=== PATIENT | female | born 1950 | race African-American/Black ===

== ENCOUNTER 2016-06-29 12:38 | Inpatient (IN) | payer MEDICARE, OTHER ==
--- NOTE | ~2016-06-29 | CN ---
Consultation Report [facility] [address] [place]. [address] NAME: YOSELIN BELTRAN : 46 STATUS : ADM Irma PAT#: [id number] AGE: 65 ADM/REG DATE : 06/29/16 MR#: [id number] REPORT SERV DATE: 06/30/16 DICTATED BY: RAGHAV ANSARI DATE: 06/30/16 REPORT STATUS : Draft TRANSCRIBED BY: MODRoselia DATE: 06/30/16 DATE OF CONSULTATION: 06/30/2016 REASON FOR CONSULTATION: Seizure and TIA. HOSPITALIST: Jude Faith M.D. COMPLIANCE FIELD TECHNICIAN: Juanito Echeverria M.D. HISTORY OF PRESENT ILLNESS: The patient is a 65-year-old female who developed a left-sided facial droop and slurred speech yesterday. Her family noticed that she was talking a little strangely and had a new facial droop, so she was brought into the emergency department for further evaluation and treatment. She denied any visual changes. She denied any weakness, however, she did complain of numbness on the left side of her face and also her left arm. During this time, the patient was also complaining of some left-sided chest pain. She stated that the pain was worse when she would take a deep breath or cough. She also complained of pain when she would move. Lastly, while the patient was in the emergency room, she recalled having spasm/seizure type movement when she was being stuck for an IV. She also mentioned she had seizure-type activity years ago when she was being stuck for an IV. She is very fearful of needles, and these were the only two times that she had seizure- like activity. When questioned more extensively, the patient remembers the whole episode and she was awake during this time. She had no aura, she had no tongue biting or incontinence, and she was fully awake during and after the episodes. PAST MEDICAL HISTORY: [place], congestive heart failure, atrial fibrillation, renal and liver "mass," anemia, obstructive sleep apnea, osteoarthritis, and obesity. PAST SURGICAL HISTORY: Recent balloon sinuplasty; shoulder, elbow, and back surgeries; total abdominal hysterectomy and cholecystectomy. ALLERGIES: OXYCODONE, FLEXERIL, AND HYDROCODONE. MEDICATIONS: Home medication list includes Eliquis 5 mg b.i.d., aspirin 81 mg daily, calcium daily, Neurontin 100 mg at bedtime, Singulair 10 mg daily, nitroglycerin p.r.n., Protonix 40 mg daily, Klor-Con 10 mEq daily, Pravachol 40 mg at bedtime, Rythmol 225 mg b.i.d., Demadex 20 mg daily, and Desyrel 50 mg at bedtime. SOCIAL HISTORY: The patient is . She lives alone. She has two children. She is on disability. She does not smoke. She rarely drinks alcohol and does not use illicits. FAMILY HISTORY: The patient's mother at age of 74, she had heart failure and lung cancer. Her father at the age of 88, he had severe peripheral vascular disease. She has eight sisters and two brothers. One sister recently had a stroke. REVIEW OF SYSTEMS: Consultation Report [address] [place]. [address] NAME: YOSELIN BELTRAN : 46 STATUS : ADM Irma PAT#: [id number] AGE: 65 ADM/REG DATE : 06/29/16 MR#: [id number] REPORT SERV DATE: 06/30/16 DICTATED BY: RAGHAV ANSARI DATE: 06/30/16 REPORT STATUS : Draft TRANSCRIBED BY: SUNITA DATE: 06/30/16 For pertinent positives, see HPI. PHYSICAL EXAMINATION: GENERAL: The patient is a 65-year-old female who stands 5 feet 6 inches tall and weighs 191 pounds. VITAL SIGNS: She is afebrile, heart rate 78, respiratory rate 16, O2 saturations on room air 96%, blood pressure 99/58. NEUROLOGIC: The patient is alert. She is oriented x4, pleasant, does communicate appropriately. She is slightly dysarthric. There is no aphasia. Pupils are 3 mm. PERRLA. She does have a left-sided facial droop and slight tongue deviation to the left. Reports left-sided facial numbness. [id number], no ataxia. She does have a pronator drift on the left comparing the left to the right. She does report numbness on the left when compared to the right. Strength is 4/5 on the left compared to the right, which is 5/5. Upper DTRs are 1+ bilaterally. Lower extremity strength is 3/5 on the left and 4/5 on the right. Lower DTRs are 2+ bilaterally. Downgoing toes. NECK: No carotid bruits, JVD, or thyromegaly. CHEST: Lung sounds are relatively clear. CARDIAC: Regular rate and rhythm. She does have chest wall tenderness upon palpation and when taking a deep breath. LABORATORY DATA: CBC is normal. BMP is normal. UA is negative for UTI. INR 1.4. Procalcitonin is normal. TSH 1.32. A1c is 5.1. Cholesterol values are elevated. CT of the brain, no acute changes. NIH Stroke Scale is 5. ASSESSMENT/PLAN: 1. Probable stroke with resultant left hemiparesis. The patient will undergo an MRI of the brain without gadolinium and an MRA of the head and neck. She will be sedated with Ativan 1 mg prior to her procedure. She will have an echocardiogram with bubble study, PT/OT, and Speech Therapy consultation, Case Management consultation for rehab placement. Additional lab work will be drawn. Her aspirin will be increased to 325 mg daily. Her Pravachol will be changed to Lipitor 80 mg daily. Education regarding risk factor reduction was done. 2. Questionable seizure versus psychogenic nonepileptic seizure. She will undergo EEG analysis. Thank you again for including us in consultation. We will follow with you. MANISHA/SUNITA NORBERTO Pacheco- / [id number] Consultation Report [address] [address] NAME: YOSELIN BELTRAN : 46 STATUS : ADM Irma PAT#: [id number] AGE: 65 ADM/REG DATE : 06/29/16 MR#: [id number] REPORT SERV DATE: 06/30/16 DICTATED BY: RAGHAV ANSARI DATE: 06/30/16 REPORT STATUS : Draft TRANSCRIBED BY: SUNITA DATE: 06/30/16 CC: Flavia Woodward M.D. Robert McKoy, M.D.
--- NOTE | ~2016-06-29 | DS ---
Discharge Summary [facility] [id number] [place]. [address] NAME: YOSELIN BELTRAN : 46 STATUS : DIS IN PAT#: [id number] AGE: 65 ADM/REG DATE : 06/30/16 MR#: [id number] REPORT SERV DATE: 07/02/16 DICTATED BY: INOCENCIA RODRIGUEZ DATE: 07/01/16 REPORT STATUS : Draft TRANSCRIBED BY: MODL DATE: 07/01/16 ADMISSION DATE: 06/30/2016 DISCHARGE DATE: 07/01/2016 PRINCIPAL DIAGNOSIS: Please see Dr. Galicia's on 06/29/2016. HOSPITAL COURSE: Admitted with CVA versus TIA with chest pain and a lot of other vague symptoms including diaphoresis, palpitations which would occur during normal telemetry, dyspnea which would occur during normal saturometry, and generalized anxiety as well. The patient had a CT which showed a significant microvascular disease, a stress test which was negative. An MRI had been ordered by Neurology, who was concerned about residual right facial droop; however, the patient earlier refused the MRI or MRA. The patient may or may not have had a baseline slightly crooked smile it was unclear, but the Neurology signed off with the patient's refusal of further workup. There was a questionable seizure that had occurred with the blood draw, and EEG was also negative; however, I felt that primarily the issue was of ongoing significant anxiety state. She will continue her BuSpar, but had Ativan p.r.n. for occasional panic attacks. She will continue in addition Tenormin 25 mg q.h.s. versus subjective palpitations, BuSpar 15 mg b.i.d., Ativan p.r.n., Singulair 10 mg daily, daily aspirin, Protonix, Desyrel, Rythmol, Neurontin, Eliquis, Lipitor. Follow up with Dr. Shauna Nino in one to two weeks, and Dr. Echeverria as previously scheduled. VESTA/SUNITA Inocencia Rodriguez M.D. / [id number] CC: Inocencia Rodriguez M.D. Shauna Nino M.D. Juanito Echeverria M.D.
--- NOTE | ~2016-06-29 | HP ---
History And Physical [facility] [address] [facility] [place]. [address] NAME: YOSELIN BELTRAN : 46 STATUS : ADM Irma PAT#: [id number] AGE: 65 ADM/REG DATE : 06/29/16 MR#: [id number] REPORT SERV DATE: 06/30/16 DICTATED BY: ASHANTI STODDARD DATE: 06/29/16 REPORT STATUS : Draft TRANSCRIBED BY: MODL DATE: 06/29/16 DATE OF ADMISSION: 06/29/2016 CHIEF COMPLAINT: Heart racing with sweating, diaphoresis, and just generalized weakness x1 week. HISTORY OF PRESENT ILLNESS: The patient is a 65-year-old female with past medical history of [place], stent in the 70s, sleep apnea, compliant with her CPAP, hypertension, arthritis, reported CHF with unknown ejection fraction followed by Dr. Echeverria who presents after having progressive shortness of breath, the palpitations, today also was noted to have diaphoretic type episode where she was breaking out in sweats with minimal activity and chest, abdominal wall discomfort that has been constant, moderate severity, noted to be sharp at times, relieving slightly by rest, nonradiating, reproducible pain in abdominal area at site of her hernia. The patient has not had any nausea, vomiting, or headache but did have shortness of breath, diaphoresis, dizziness, palpitations as she reports that she can almost see her heart thumping out of her chest at times. She has also been evaluated by Dr. Harman in past for dysrhythmia for which she has apparently worn Holter but not required any intervention at that time. Symptoms are worsened with activity and sitting up, relieved by lying down and rest. The patient also reports that this morning had facial numbness around 0930 hours, mild, irregular neurologic finding of the patient having twitching episode. It is unclear if this was seizure-type that was witnessed by Dr. Lopez, however, patient was still able to talk during this episode as she was able to respond to questioning of Eliquis as her blood thinning medication. These symptoms also have resolved but the patient does have mild dyssymmetry on her lip. ADDITIONAL REVIEW OF SYSTEMS: A 10-point review of systems negative except for that noted in the HPI. PAST MEDICAL HISTORY: Heart attack, CHF, kidney and liver tumors, anemia, [place], stent history in years passed, sleep apnea on CPAP, and arthritis. SURGERY: Shoulder, elbow and back surgeries, hysterectomy, gallbladder. She has a planned hemorrhoid surgery. FAMILY HISTORY: Heart, diabetes, cancer, and peripheral artery disease. SOCIAL HISTORY: Negative smoking, does have rare alcohol. No illicits. She has been nurse assistance for 35 years. ALLERGIES: OXYCODONE, FLEXERIL, AND HYDROCODONE. HOME MEDICATIONS: Eliquis, aspirin, calcitriol, Neurontin, Singulair, Nitrostat, Protonix, Klor-Con, pravastatin, Rythmol, Demadex, and trazodone. PHYSICAL EXAMINATION: VITAL SIGNS: The patient's blood pressure 133/82, temperature 97.0, pulse 93, respirations History And Physical [address] [address] NAME: YOSELIN BELTRAN : 46 STATUS : ADM Irma PAT#: [id number] AGE: 65 ADM/REG DATE : 06/29/16 MR#: [id number] REPORT SERV DATE: 06/30/16 DICTATED BY: ASHANTI STODDARD DATE: 06/29/16 REPORT STATUS : Draft TRANSCRIBED BY: SUNITA DATE: 06/29/16 18, O2 sats 100% on room air. GENERAL: Elderly than stated age. Well developed, well nourished. EYES: No scleral icterus. EOMI. Symmetrical, no nystagmus. ENT: Does have mild right-sided droop type episode except with smile this resolves. Moist mucous membranes. RESPIRATORY: Clear to auscultation. No wheezes or rales. CV: Mildly irregular, but tachycardic mild systolic murmur. No rubs. No pedal edema. Warm extremities. Bounding pulses. GI: GI has inappropriate tenderness around hernia area. There is no incarceration appreciated and hernia is reducible. This is where appears to be majority of chest pain discomfort possibly originates from. Negative fluid wave. Does have central obesity. : Deferred. MUSCULOSKELETAL: Moves all extremities x4. SKIN: Warm and dry. LYMPH: No cervical or supraclavicular lymphadenopathy. HEME: No bleeding or bruising. NEURO: Symmetrical smile, however, at rest the patient has had mild right-sided droop. Although the patient does report numbness, sensation is still grossly intact. Does have symmetrical midline tongue. Symmetrical cheek inflation, brow wrinkle. Eyes, symmetrical. Symmetrical strength in hands bilaterally. Sensation is still grossly intact in lower extremities. Moves all extremities. Gait untested at this time. PSYCHIATRIC: Mildly anxious. DATA: EKG; sinus rhythm with PACs at a rate of 100, QTc 477 on repeat EKG. Her initial EKG did have mild low voltage criteria with sinus arrhythmia. Chest x-ray; minimal bibasilar atelectasis. CT brain initial prelim report given to emergency room, reported negative, however, final report also reports no acute infarct or hemorrhage, mild atrophy with chronic white matter gliosis. Urinalysis grossly within normal limits. CMP grossly within normal limits with a BUN and creatinine at 12 and 1.19, troponin is negative. CBC also grossly within normal limits. Does have INR of 1.9, PTT 39.4, and protime of 16.9. ASSESSMENT AND PLAN: 1. Chest pain. 2. Questionable transient ischemic attack. 3. Sleep apnea. 4. Hypertension. 5. Atelectasis. 6. Congestive heart failure history. 7. Inappropriate abdominal pain with hernia. PLAN: 1. For chest pain, monitor troponins currently negative. Rule out ACS, does have arrhythmia history seen by Dr. Harman. We will additionally consult trey Prieto for History And Physical [address] [address] NAME: YOSELIN BELTRAN : 46 STATUS : ADM Irma PAT#: [id number] AGE: 65 ADM/REG DATE : 06/29/16 MR#: [id number] REPORT SERV DATE: 06/30/16 DICTATED BY: ASHANTI STODDARD DATE: 06/29/16 REPORT STATUS : Draft TRANSCRIBED BY: MODL DATE: 06/29/16 echocardiogram and stress test as tolerated as the patient did report having chest pain, diaphoresis, and has had history of coronary disease in the past. No acute dynamic ST changes noted on EKG. Symptoms have been occurring for approximately five days. 2. Questionable transient ischemic attack type symptoms. Initial numbness occurred approximately 0930 hours, non tPA candidate. Does have mild asymmetric facial droop, but this recovers with smile. We will order MRI MRA, evaluate for carotid, stroke order set or TIA order set initiated in the emergency room. 3. Sleep apnea. Continue home CPAP. 4. Hypertension, acceptable. 5. Atelectasis. ICS. 6. CHF history. Check BNP and echocardiogram. Unclear prior ejection fraction, not in acute exacerbation at this time. 7. Inappropriate abdominal pain with hernia, does not seem incarcerated. We will check lactate and repeat with a.m. labs and get plain film KUB. All questions answered with the patient family at bedside. Guarded due to multitude of issues with chest pain, possible TIA, and abdominal discomfort. This has been also discussed with family. DDN/MODL Ashanti Stoddard MD / [id number] CC: Jude Faith M.D. Shauna Nino M.D.
--- NOTE | ~2016-06-29 | EEG ---
Electroencephalogram [facility] [id number] [place]. [address] NAME: YOSELIN BELTRAN : 46 STATUS : ADM IN PAT#: [id number] AGE: 65 ADM/REG DATE : 06/30/16 MR#: [id number] REPORT SERV DATE: 06/30/16 DICTATED BY: ALEN MEDEL DATE: 06/30/16 REPORT STATUS : Draft TRANSCRIBED BY: MODL DATE: 06/30/16 EEG NUMBER: [id number]. REQUESTING PHYSICIAN: Jude Faith M.D. ORDERING: Jyotsna Garza [facility] INTERPRETING PHYSICIAN: Alen Medel M.D. REASON FOR EEG: TIA versus seizure. 23 surface electrodes, 10-20 international placement was used. The patient was noted to be awake, drowsy, and asleep throughout the study. The background activity consisted of [id number] voltage, at times poorly organized, 8 through 9 cycles per second located in the posterior head regions. Slower frequencies in the theta and delta range were noted scattered throughout increased by drowsiness. Intermittent increase of slower frequencies in the temporal and anterior head regions could have been correlated with episodes of drowsiness and light sleep. Although some sharpness of waveforms was detected in the anterior head regions. No true epileptiform activity was observed. There was no significant asymmetry of cerebral activity. The patient's accountant cost showed sinus rhythm, rate of approximately 72 beats per minute. IMPRESSION: MILDLY ABNORMAL EEG CHARACTERIZED BY PRESENCE OF INCREASE OF SLOWER FREQUENCIES IN TEMPORAL AND FRONTAL REGIONS. THE PATIENT APPEARED SOMNOLENT THROUGHOUT THIS STUDY. NO TRUE PAROXYSMAL EPILEPTIFORM ACTIVITY WAS OBSERVED. THERE WAS NO EVIDENCE OF SIGNIFICANT ASYMMETRY. CLINICAL CORRELATION IS RECOMMENDED. FELIPE/SUNITA Alen Medel MD / [id number]
[~2016-06-29 12:38] MED LIST: AMB10 PO; ASAB PO; BEN25 PO; BENTYL10 PO; BETAPACE80 PO; BUM2 PO; COUMADIN6 MG PO; CRESTOR20 MG PO; DEMA20 PO; DIMENHY50I PO; ELIQUIS 5 MG TAB5 MG PO; FIORICET/COD OR; FLONASE NAS; FOLGARD PO; IMDUR30 PO; ISOSORB DIN30 MG PO; KLOR-CON 1010 MEQ PO; KLOR-CON M1010 MEQ PO; L20 PO; LIBRAX PO; LORTAB10 PO; LYRICA50 PO; NASACORTAQ NAS; NEUR100 PO; OXYCON20 PO; PCET PO; PHARBEDRYL25 MG OR; PRILO PO; PRIN10 PO; PROMEGA PO; PROTONIX PO; ROCALTROL 0.0.25 MCG PO; RYTHMOL150 MG PO; SUCR PO; TOPXL50 PO; TRANSSCOP TOP; TRAZ50 PO; VICODINTAB PO; VITAMIN D400 UNI1 PO; WELCHOL625 MG OR; XANAX1 MG PO; ZETIA PO; ZOCOR40 PO; ZOL100 PO
[2016-06-29 13:26] LABS: BASOPHILS 0.2 %; BASOPHILS ABSOLUTE 0.01 10/3/uL (0.0-0.16); EOSINOPHILS 2.3 %; EOSINOPHILS ABSOLUTE 0.14 10/3/uL (0.0-0.53); HEMOGLOBIN 13.5 g/dL (12.0-16.0); IMMATURE GRANULOCYTES 0.2 %; IMMATURE GRANULOCYTES ABSOLUTE 0.01 10/3/uL (0.0-0.11); LYMPHOCYTES 26.2 %; LYMPHOCYTES ABSOLUTE 1.61 10/3/uL (0.67-4.30); MEAN CORPUS HGB CONC 33.1 g/dL (32.0-36.0); MEAN CORPUSCULAR HEMOGLOB 28.4 pg (26.0-34.0); MEAN CORPUSCULAR VOLUME 85.7 fL (80-100); MEAN PLATELET VOLUME 10.2 fL (9.2-13.0); MONOCYTES 8.6 %; MONOCYTES ABSOLUTE 0.53 10/3/uL (0.21-1.20); NEUTROPHILS 62.5 %; NEUTROPHILS ABSOLUTE 3.85 10/3/uL (2.02-8.40); PLATELET COUNT 229 10/3/uL (150-400); RBC DISTRIBUTION WIDTH 15.9 % (12.0-16.0); RED CELL COUNT 4.76 10/6/uL (4.0-5.6); WHITE BLOOD CELLS 6.2 10/3/uL (4.5-10.5)
[2016-06-29 13:27] LABS: HEMATOCRIT 40.8 % (36.0-48.0); MANUAL DIFF NO %
[2016-06-29 13:36] LABS: INTERNATIONAL NORMAL RATI 1.4 UNITS (-)
[2016-06-29 13:37] LABS: PARTIAL THROMBO TIME 39.4 SEC (22.5-37.2)
[2016-06-29 13:38] LABS: PROTIME (NOT ORD) 16.9 SEC (12.0-14.5)
[2016-06-29 13:44] LABS: BUN (BLOOD UREA NITROGEN) 12 MG/DL (6-23); CALCIUM, SERUM 9.2 MG/DL (8.5-10.4); CHEST PAIN PROFILE TAT 0 Hrs 22 Mins; CHLORIDE, SERUM 105 MMOL/L (96-112); CO2 (CARBON DIOXIDE) 27 MMOL/L (24-34); CREATININE 1.19 MG/DL (0.55-1.02); GFR AFRICAN AMERICAN 55 ML/MIN (>=60); GFR NON AFRICAN AMERICAN 47 ML/MIN (>=60); GLUCOSE, SERUM 94 MG/DL (60-99); POTASSIUM, SERUM 3.8 MMOL/L (3.5-5.3); SODIUM, SERUM 142 MMOL/L (135-148); TROPONIN I <0.02 NG/ML (<0.05)
[2016-06-29] MEDS ORDERED: ELIQUIS 5 MG TAB5 MG PO (16:01)
[2016-06-29] MEDS ORDERED: KLOR-CON M1010 MEQ PO (16:01)
[2016-06-29] MEDS ORDERED: SINGULAIR1 PO (16:02)
[2016-06-29] MEDS ORDERED: TRAZ50 PO (16:02)
[2016-06-29] MEDS ORDERED: DEMA20 PO (16:03)
[2016-06-29] MEDS ORDERED: ROCALTROL 0.0.25 MCG PO (16:03)
[2016-06-29] MEDS ORDERED: NEUR100 PO (16:03)
[2016-06-29] MEDS ORDERED: PROTONIX PO (16:07)
[2016-06-29] MEDS ORDERED: NITROSTAT0.4 MG SL (16:08)
[2016-06-29] MEDS ORDERED: LIPITOR40 PO (16:09)
[2016-06-29] MEDS ORDERED: HALF81 PO (16:09)
[2016-06-29] MEDS ORDERED: RYTHMOL225 MG PO (16:09)
[2016-06-29 16:40] LABS: ALBUMIN 4.1 G/DL (3.5-5.0); DIRECT BILIRUBIN 0.1 MG/DL (0.0-0.4); INDIRECT BILIRUBIN(NOT ORDER) 0.4 MG/DL (0.1-0.9); SGOT(AST) 20 U/L (5-40); SGPT(ALT) 17 U/L (5-65); TOTAL BILIRUBIN 0.5 MG/DL (0-1.2); TOTAL PROTEIN 7.8 G/DL (6.0-8.5)
[2016-06-29 16:41] LABS: ALKALINE PHOSPHATASE 70 U/L (45-117)
[2016-06-29 17:33] LABS: ASCORBIC ACID (UR NOT ORDER) NEG (NEG); BILIRUBIN, URINE NEGATIVE (NEG); ER URINALYSIS TAT 0 Hrs 18 Mins; KETONE, URINE NEGATIVE (NEG); LEUKOCYTE ESTERASE(NOT OR NEG (NEG); NITRITE (URINE) NEG (NEG); WBC (NOT ORDERED) (RFLEX) < 1 (0-5)
[2016-06-29 23:10] LABS: BASOPHILS 0.3 %; BASOPHILS ABSOLUTE 0.02 10/3/uL (0.0-0.16); EOSINOPHILS 1.3 %; EOSINOPHILS ABSOLUTE 0.09 10/3/uL (0.0-0.53); HEMATOCRIT 39.5 % (36.0-48.0); HEMOGLOBIN 12.9 g/dL (12.0-16.0); IMMATURE GRANULOCYTES 0.1 %; IMMATURE GRANULOCYTES ABSOLUTE 0.01 10/3/uL (0.0-0.11); LYMPHOCYTES 32.6 %; LYMPHOCYTES ABSOLUTE 2.21 10/3/uL (0.67-4.30); MANUAL DIFF NO %; MEAN CORPUS HGB CONC 32.7 g/dL (32.0-36.0); MEAN CORPUSCULAR VOLUME 85.7 fL (80-100); MEAN PLATELET VOLUME 9.6 fL (9.2-13.0); MONOCYTES ABSOLUTE 0.61 10/3/uL (0.21-1.20); NEUTROPHILS 56.7 %; NEUTROPHILS ABSOLUTE 3.83 10/3/uL (2.02-8.40); PLATELET COUNT 211 10/3/uL (150-400); RED CELL COUNT 4.61 10/6/uL (4.0-5.6); WHITE BLOOD CELLS 6.8 10/3/uL (4.5-10.5)
[2016-06-29 23:33] LABS: CHOL/HDL RATIO(NOT ORDER) 2.2 (0-5); CHOLESTEROL 250 MG/DL (< 200); CK-MB 0.6 NG/ML; CPK 79 U/L (0-200); HDL CHOLESTEROL 115 MG/DL (> 49); LDL CHOLESTEROL 116 MG/DL (< 130); NON-HDL CHOLESTEROL 135 MG/DL (< 160); PHOSPHORUS, SERUM 3.6 MG/DL (2.5-4.5); TRIGLYCERIDE 98 MG/DL (< 150); TROPONIN I <0.02 NG/ML (<0.05)
[2016-06-30 00:07] LABS: PROCALCITONIN <0.05 ng/mL (<0.5)
[2016-06-30 06:54] LABS: BASOPHILS 0.4 %; BASOPHILS ABSOLUTE 0.02 10/3/uL (0.0-0.16); EOSINOPHILS 2.9 %; EOSINOPHILS ABSOLUTE 0.14 10/3/uL (0.0-0.53); HEMATOCRIT 35.8 % (36.0-48.0); HEMOGLOBIN 11.7 g/dL (12.0-16.0); IMMATURE GRANULOCYTES 0.2 %; IMMATURE GRANULOCYTES ABSOLUTE 0.01 10/3/uL (0.0-0.11); LYMPHOCYTES 33.9 %; LYMPHOCYTES ABSOLUTE 1.66 10/3/uL (0.67-4.30); MANUAL DIFF NO %; MEAN CORPUS HGB CONC 32.7 g/dL (32.0-36.0); MEAN CORPUSCULAR HEMOGLOB 28.2 pg (26.0-34.0); MEAN CORPUSCULAR VOLUME 86.3 fL (80-100); MEAN PLATELET VOLUME 9.7 fL (9.2-13.0); MONOCYTES 11.6 %; MONOCYTES ABSOLUTE 0.57 10/3/uL (0.21-1.20); PLATELET COUNT 196 10/3/uL (150-400); RBC DISTRIBUTION WIDTH 16.2 % (12.0-16.0); RED CELL COUNT 4.15 10/6/uL (4.0-5.6); WHITE BLOOD CELLS 4.9 10/3/uL (4.5-10.5)
[2016-06-30 07:05] LABS: BUN (BLOOD UREA NITROGEN) 14 MG/DL (6-23); CALCIUM, SERUM 8.5 MG/DL (8.5-10.4); CHLORIDE, SERUM 107 MMOL/L (96-112); CO2 (CARBON DIOXIDE) 26 MMOL/L (24-34); CPK 64 U/L (0-200); CREATININE 1.11 MG/DL (0.55-1.02); GFR AFRICAN AMERICAN 60 ML/MIN (>=60); GFR NON AFRICAN AMERICAN 51 ML/MIN (>=60); GLUCOSE, SERUM 76 MG/DL (60-99); POTASSIUM, SERUM 3.5 MMOL/L (3.5-5.3); SGOT(AST) 13 U/L (5-40); SGPT(ALT) 12 U/L (5-65); SODIUM, SERUM 143 MMOL/L (135-148); TOTAL BILIRUBIN 0.7 MG/DL (0-1.2); TOTAL PROTEIN 6.3 G/DL (6.0-8.5); TROPONIN I <0.02 NG/ML (<0.05)
[2016-06-30 07:06] LABS: ALBUMIN 3.2 G/DL (3.5-5.0); ALKALINE PHOSPHATASE 57 U/L (45-117); CK-MB < 0.5 NG/ML; GLOBULIN 3.1 G/DL (2.5-4.1)
[2016-06-30 16:21] LABS: ALBUMIN 3.7 G/DL (3.5-5.0); ALKALINE PHOSPHATASE 60 U/L (45-117); DIRECT BILIRUBIN 0.1 MG/DL (0.0-0.4); INDIRECT BILIRUBIN(NOT ORDER) 0.4 MG/DL (0.1-0.9); SGOT(AST) 14 U/L (5-40); SGPT(ALT) 15 U/L (5-65); TOTAL BILIRUBIN 0.5 MG/DL (0-1.2)
[2016-06-30 16:22] LABS: FOLATE 47.1 NG/ML (>5.2)
[2016-06-30 17:01] LABS: PROCALCITONIN <0.05 ng/mL (<0.5)
[2016-06-30 18:34] LABS: CK-MB 0.6 NG/ML; CPK 72 U/L (0-200); TROPONIN I <0.02 NG/ML (<0.05)
[2016-07-01] MEDS ORDERED: BUSPAR15 M1 PO (10:56)
[2016-07-01] MEDS ORDERED: ATV1 PO (11:02)
[2016-07-01] MEDS ORDERED: ATEN25 PO (11:02)
== END 2016-07-01 15:10 | disposition home or self-care (01) | DRG 880 ==
LOC: ER 12:38 → 1SO 19:02
PROVIDERS: Emergency Medicine; Nurse Practitioner; Student in an Organized Health Care Education/Training Program
DX: F41.0 Panic disorder [episodic paroxysmal anxiety] (principal); I11.0 Hypertensive heart disease with heart failure; I50.9 Heart failure, unspecified; R00.2 Palpitations; G47.33 Obstructive sleep apnea (adult) (pediatric); Z95.5 Presence of coronary angioplasty implant and graft; I25.2 Old myocardial infarction; Z88.5 Allergy status to narcotic agent; Z79.82 Long term (current) use of aspirin; Z79.01 Long term (current) use of anticoagulants
CPT/HCPCS: 70450; 71020; 74020; 78452; 80048; 80053; 80061; 80076; 81001; 82140; 82533; 82550; 82553; 82607; 82746; 83036; 83605; 83735; 83880; 84100; 84145; 84443; 84484; 85025; 85610; 85730; 93005; 93017; 95819; 96374; 96376; 99285; A9270-GY; A9502